=== PATIENT | male | born 1970 | race Caucasian/White ===

== ENCOUNTER → 2022-08-01 | Outpatient (CLI) | payer SELFPAY ==
--- NOTE | 2022-08-01 13:05 | CT_ITS ---
EXAM: CT RIGHT LOWER EXTREMITY WITHOUT INTRAVENOUS CONTRAST CLINICAL INDICATION: PREOP TECHNIQUE: Helically acquired images were obtained of the right lower extremity without intravenous contrast. 2-D reformats were performed by the technologist. CTDIvol = ( 18.76 ) mGy, DLP = ( 1199.66 ) mGycm This CT exam was performed using one or more of the following dose reduction techniques: automated exposure control, adjustment of the mA and/or kV according to patient size, and/or use of iterative reconstruction technique. This report was created using [employer] report [employer] technology. COMPARISON: None. FINDINGS: BONES/JOINTS: Mild degenerative changes involving the right hip joint. Mild enthesopathy along the ischial tuberosity and the greater trochanter. Moderate tricompartmental osteoarthrosis of the knee with a small to moderate suprapatellar joint effusion. Very small Garibay''s cyst identified. Small suprapatellar enthesophyte. 14 mm bone island involving the intertrochanteric region of the right proximal femur. No acute fracture. No subluxation. Normal alignment. No significant tibiotalar joint effusion. SOFT TISSUES: As above with no other soft tissue abnormalities. LYMPH NODES: Unremarkable. No soft tissue masses or adenopathy. CT/Extremity Lower without Contra IMPRESSION: 1. Preoperative planning study. 2. Moderate osteoarthritic changes of the hip and knee. 3. Ancillary findings as above. Electronically Signed: Casper Salvador MD at 22:35 EST Reading Location ID and State: [address] [place] [address] Tel , Service support ,
== END | disposition home or self-care (01) ==
PROVIDERS: Referring Provider Specialist; Visit Provider Specialist
DX: M21.161 Varus deformity, not elsewhere classified, right knee (principal); M17.11 Unilateral primary osteoarthritis, right knee; M16.11 Unilateral primary osteoarthritis, right hip
CPT/HCPCS: 73700